=== PATIENT | female | born 1955 | race Two or more races ===

== ENCOUNTER 2020-11-13 18:23 | Emergency (ER) | payer MEDICAID ==
[~2020-11-13] VITALS: Ht 160 cm; Wt 42.7 kg
[2020-11-13] MEDS ORDERED: LOSA50TA37 PO ×2 (18:42)
[2020-11-13 19:45] VITALS: BP 129/73
[2020-11-13] MEDS ORDERED: ONDANSETRON HCL 4 MG TABLET PO ONE (19:45)
[2020-11-13] MEDS ORDERED: IBUPROFEN 600 MG TABLET PO ONE (19:45)
== END 2020-11-13 21:22 | disposition home or self-care (01) ==
LOC: EMS 18:28
DX: S09.90XA Unspecified injury of head, initial encounter (principal); E11.9 Type 2 diabetes mellitus without complications; I10 Essential (primary) hypertension; Z79.899 Other long term (current) drug therapy; W22.8XXA Striking against or struck by other objects, initial encounter; Y93.89 Activity, other specified; Y92.89 Other specified places as the place of occurrence of the external cause; Y99.8 Other external cause status
CPT/HCPCS: 99283; Q0162

== ENCOUNTER 2021-12-21 18:35 | Emergency (ER) | payer MEDICAID, OTHER ==
[~2021-12-21] VITALS: Ht 157.5 cm; Wt 90.9 kg
[~2021-12-21 18:35] MED LIST: LOSA-382 PO
[2021-12-21] MEDS ORDERED: ATOR40TA71 PO (19:11)
[2021-12-21] MEDS ORDERED: EMPA25TA3 PO (19:11)
[2021-12-21] MEDS ORDERED: INSLAN SQ (19:11)
[2021-12-21] MEDS ORDERED: KETOROLAC TROMETHAMINE 30 MG/ML VIAL IM ONE (22:00)
[2021-12-21] MEDS ORDERED: LIDOCAINE 5% TRANSDERMAL PATCH TD ONE (22:00)
[2021-12-21 22:44] LABS: APPEARANCE,URINE CLEAR (CLEAR); BILIRUBIN,URINE NEGATIVE (NEGATIVE); GLUCOSE, URINE (UA) >=1000 mg/dL (NEGATIVE); KETONES,URINE NEGATIVE (NEGATIVE); LEUKOCYTE ESTERASE ,URINE NEGATIVE (NEGATIVE); NITRATE,URINE NEGATIVE (NEGATIVE); OCCULT BLOOD,URINE NEGATIVE (NEGATIVE); PROTEIN,URINE NEGATIVE (NEGATIVE); UROBILINOGEN,URINE <=1.0 mg/dL (<=1.0)
[2021-12-21 23:07] LABS: BACTERIA,URINE None Seen /HPF (None Seen); RBC,URINE None Seen /HPF (0-2)
[2021-12-21] MEDS ORDERED: IBUP-2070 PO (23:37)
[2021-12-21] MEDS ORDERED: CYCL-448 PO (23:37)
[2021-12-22] VITALS: BP 132/77
== END 2021-12-22 00:49 | disposition home or self-care (01) ==
LOC: EMS 18:52
DX: M54.50 Low back pain, unspecified (principal); E11.9 Type 2 diabetes mellitus without complications; E78.00 Pure hypercholesterolemia, unspecified; I10 Essential (primary) hypertension; R30.0 Dysuria; M41.9 Scoliosis, unspecified; Z98.890 Other specified postprocedural states
CPT/HCPCS: 99283; 81001; 82962; 96372; J1885; 81003

== ENCOUNTER 2023-09-04 05:12 | Emergency (ER) | payer OTHER ==
[~2023-09-04] VITALS: Ht 165.1 cm; Wt 85.0 kg
[~2023-09-04 05:12] MED LIST changes: +ATOR40TA71 PO; +EMPA25TA3 PO; +INSLAN SQ; +METF-1211 PO
[2023-09-04 05:26] VITALS: BP 142/90; PULSE 62; RESP 18; TEMP 98.2
[2023-09-04] MEDS: IBUPROFEN 600 MG TABLET PO ONE (06:28)
[2023-09-04] MEDS ORDERED: LIDO700A15 TP (06:43)
[2023-09-04] MEDS ORDERED: ACET-3385 PO (06:43)
[2023-09-04] MEDS ORDERED: IBUP-1492 PO (06:43)
== END 2023-09-04 06:52 | disposition home or self-care (01) ==
LOC: EMS 05:13
DX: M54.16 Radiculopathy, lumbar region (principal); E11.9 Type 2 diabetes mellitus without complications; I10 Essential (primary) hypertension
CPT/HCPCS: 99283